=== PATIENT | female | born 1995 | race Caucasian/White ===

== ENCOUNTER 2017-12-20 06:56 | Emergency (ER) | payer OTHER ==
[2017-12-20] MEDS ORDERED: Ondansetron HCl/PF 4 MG/2 ML Vial ONE (07:32)
[2017-12-20 07:49] LABS: BHCG - Serum Negative (NEGATIVE); Pregs Control Background? CLEAR/WHITE (CLR/WHITE); Pregs Control Bar Appear? YES (CONTROL BAR)
[2017-12-20] MEDS ORDERED: Loperamide HCl 2 MG CAP ONE (08:20)
== END 2017-12-20 08:32 | disposition home or self-care (01) ==
LOC: SCSER 06:56
DX: R11.2 Nausea with vomiting, unspecified (principal); R19.7 Diarrhea, unspecified; F41.9 Anxiety disorder, unspecified; Z79.899 Other long term (current) drug therapy
CPT/HCPCS: 84703; 96361; 96374; J2405